=== PATIENT | male | born 2000 | race Two or more races ===

== ENCOUNTER → 2022-03-05 | Emergency (ER) | payer OTHER ==
[~2022-03-05] VITALS: Ht 188 cm; Wt 100.0 kg
[~2022-03-05] MED LIST: ALUM & MAG HYDROX-SIMETH LIQ(MAALOX) 30 ML PO ONE; FAMOTIDINE (10MG/ML) 2ML VL IV ONE; IBUPROFEN 800 MG TAB PO ONE; METOCLOPRAMIDE HCL 5MG/ml INJ 2ml VIAL IV ONE; MORPHINE SULFATE 4 MG/ML SYR/VIAL IV ONE; ONDANSETRON HCL 4 MG/2 ML VIAL IV ONE; POTASSIUM CHL 20MEQ/100ML 100 ML IV ONE; POTASSIUM EFFERVESENT TAB 25 MEQ PO ONE; SODIUM CHLORIDE 0.9% 1,000 ML IV ONE
[2022-03-05 07:27] LABS: Basophils # (auto) 0.2 10 ^3/uL (0-0.2); Eosinophils # (auto) 0.2 10 ^3/uL (0-0.8); Eosinophils % (auto) 1.4 % (0.0-7.0); Hematocrit 49.2 % (41.0-53.0); Hemoglobin 16.8 g/dL (13.5-17.5); Lymphocytes # (auto) 3.7 10 ^3/uL (0.4-5.4); Lymphocytes % (auto) 21.7 % (10.0-50.0); Mean Corpuscular Hgb Conc. 34.2 g/dL (32.0-36.0); Mean Corpuscular Volume 87.7 fL (80.0-100.0); Monocytes # (auto) 1.3 10 ^3/uL (0-1.3); Monocytes % (auto) 7.9 % (0.0-12.0); Neutrophils # (auto) 11.5 10 ^3/uL (1.6-8.6); Nucleated Red Blood Cells % 0.1 %; Red Cell Distribution Width 13.5 % (11.8-14.3); White Blood Cell 16.9 10^3/uL (4.4-10.8)
[2022-03-05 07:38] LABS: Albumin 4.3 g/dL (3.4-5.0); Calcium 9.9 mg/dL (8.5-10.1); Potassium 3.1 mmol/L (3.5-5.1)
[2022-03-05 07:41] LABS: Bilirubin, Total 1.2 mg/dL (0.2-1.0)
[2022-03-05 07:55] LABS: BUN/Creatinine Ratio 7.1
[2022-03-05 16:01] VITALS: BP 120/78
== END | disposition short-term general hospital (02) ==
LOC: ER 06:17
DX: K85.90 Acute pancreatitis without necrosis or infection, unspecified (principal); D72.829 Elevated white blood cell count, unspecified; R00.0 Tachycardia, unspecified; E87.6 Hypokalemia; R74.01 Elevation of levels of liver transaminase levels; R74.8 Abnormal levels of other serum enzymes; E80.7 Disorder of bilirubin metabolism, unspecified; N17.9 Acute kidney failure, unspecified; Z20.822 Contact with and (suspected) exposure to COVID-19
CPT/HCPCS: 36415; 71045; 74176; 76705; 80053; 83690; 84132; 85025; 87426; 96361; 96374; 96375; 96376; 99285; J2270; J2405; J2765; J3490; J7030

== ENCOUNTER 2024-12-06 12:26 | Inpatient (IN) | payer MEDICAID, OTHER ==
[~2024-12-06] VITALS: Ht 182.9 cm; Wt 100.0 kg
[2024-12-06 12:27] VITALS: TEMP 99.1
--- NOTE | 2024-12-06 13:02 | ED.PDOC ---
GI ASSESSMENT HPI Comments 24y M who presents to the ED for chief complaint of abdominal pain. Pt states he has been epigastric abdominal pain since yesterday. Pt states his pain is constant, non-radiating, with no associated exacerbating or relieving factors. Pt denies any associated symptoms. Pt states he has history of pancreatitis for which he was hospitalized 2x years prior. Pt states he is daily drinker and states he drinks 6 beers daily. Pt states he stopped drinking in October and started drinking back on Nov 25 and stopped again 2 days prior. Pt otherwise has noted BP of 161/89 but otherwise stable vitals. Chief Complaint: Abdominal Pain Time Seen by MD: 13:00 Reviewed Notes: Medications, Allergies Allergies: Coded Allergies: NO KNOWN ALLERGIES (Unverified , 03/05/22) Information Source: Patient Mode of Arrival: Ambulatory Past Medical History PAST MEDICAL HISTORY: Denies Surgical History: Denies all surgeries Family History Family History: Unknown Social History Smoker: Non-Smoker Alcohol: Heavy Drugs: Denies Drug Use Lives In: Home Constitutional: denies: chills, diaphoresis, fatigue, fever, malaise, sweats, weakness, others EENTM: denies: blurred vision, double vision, ear bleeding, ear discharge, ear drainage, ear pain, ear ringing, eye pain, eye redness, hearing loss, mouth pain, mouth swelling, nasal discharge, nose bleeding, nose congestion, nose pa in, photophobia, tearing, throat pain, throat swelling, voice changes, others Respiratory: denies: cough, hemoptysis, orthopnea, SOB at rest, shortness of breath, SOB with excertion, stridor, wheezing, others Cardiovascular: denies: chest pain, dizzy spells, diaphoresis, Dyspnea on exertion, edema, irregular heart beat, left arm pain, lightheadedness, palpitations, PND, syncope, others Gastrointestinal: reports: abdominal pain; denies: abdomen distended, blood streaked bowels, constipated, diarrhea, dysphagia, difficulty swallowing, hematemesis, melena, nausea, poor appetite, poor fluid intake, rectal bleeding, rectal pain, vomiting, others Genitourinary: denies: burning, dysuria, flank pain, frequency, hematuria, incontinence, penile discharge, penile sore, pain, testicle pain, testicle swelling, urgency, others Neurological: denies: dizziness, fainting, headache, left sided numbness, left sided weakness, numbness, paresthesia, pre-existing deficit, right sided numbness, right sided weakness, seizure, speech problems, tingling, tremors, weakness, others Musculoskeletal: denies: back pain, gout, joint pain, joint swelling, muscle pain, muscle stiffness, neck pain, others Integumetry: denies: bruises, change in color, change in hair/nails, dryness, laceration, lesions, lumps, rash, wounds, others Allergic/Immunocompromised: denies: Difficulty Healing, Frequent Infections, Hives, Itching, others Hematologic/Lymphatic: denies: anemia, blood clots, easy bleeding, easy bruising, swollen glands, others Endocrine: denies: excessive hunger, excessive sweating, excessive thirst, excessive urination, flushing, intolerance to cold, intolerance to heat, unexplained weight gain, unexplained weight loss, others Psychiatric: denies: anxiety, bipolar disorder, depression, hopeless, panic disorder, schizophrenia, sleepless, suicidal, others All Other Systems: Reviewed and Negative Physical Exam General Appearance: Mild Distress, Moderate Distress HEENT: Normal ENT Inspection, PERRL/EOMI Neck: Full Range of Motion, Non-Tender, Normal, Normal Inspection Respiratory: Chest Non-Tender, Lungs Clear, No Accessory Muscle Use, No Respiratory Distress, Normal Breath Sounds Cardiovascular: No Edema, No JVD, No Murmur, No Gallop, Normal Peripheral Pulses, Regular Rate/Rhythm Breast Exam: Deferred Gastrointestinal: Epigastric, No Organomegaly, No Pulsatile Mass, Normal Bowel Sounds, Soft, Tenderness Genitalia: Epididymis Pelvic: Deferred Rectal: Deferred Extremities: No calf tenderness, Normal capillary refill, Normal inspection, Normal range of motion, Non-tender, No pedal edema Neurologic: Alert, accreditation specialist II-XII nml as Tested, No Motor Deficits, Normal Affect, Normal Mood, No Sensory Deficits Cerebellar Function: Normal Reflexes: Normal Skin: Dry, Normal Color, Warm Peripheral Pulses: 1+ carotid (R), 1+ carotid (L) Lymphatic: No Adenopathy Was a procedure done? Was a procedure done?: No GI differential Dx Differential Diagnosis: Esophagitis, Gastritis/PUD, Gastroenteritis, Pancreatitis, Dehydration, Electrolyte Imbalance, Stress Ulcer X-Ray, Labs, Meds, VS Vital Signs Date Time Temp Pulse Resp B/P (MAP) Pulse Ox O2 Delivery O2 Flow Rate FiO2 12/06/24 12:27 99.1 88 17 161/98 97 99.1 Lab Test 12/06/24 13:52 Range/Units White Blood Count 17.2 H 4.4-10.8 10^3/uL Red Blood Count 5.59 4.5-5.90 10^6/uL Hemoglobin 16.4 13.5-17.5 g/dL Hematocrit 47.5 41.0-53.0 % Mean Corpuscular Volume 85.0 80.0-100.0 fL Mean Corpuscular Hemoglobin 29.4 28.0-32.0 pg Mean Corpuscular Hemoglobin Concent 34.6 32.0-36.0 g/dL Red Cell Distribution Width 13.1 11.8-14.3 % Platelet Count 261 140-450 10^3/uL Mean Platelet Volume 8.9 6.9-10.8 fL Neutrophils (%) (Auto) 85.4 H 37.0-80.0 % Lymphocytes (%) (Auto) 10.2 10.0-50.0 % Monocytes (%) (Auto) 3.5 0.0-12.0 % Eosinophils (%) (Auto) 0.5 0.0-7.0 % Basophils (%) (Auto) 0.4 0.0-2.0 % Neutrophils # (Auto) 14.7 H 1.6-8.6 10 ^3/uL Lymphocytes # (Auto) 1.8 0.4-5.4 10 ^3/uL Monocytes # (Auto) 0.6 0-1.3 10 ^3/uL Eosinophils # (Auto) 0.1 0-0.8 10 ^3/uL Basophils # (Auto) 0.1 0-0.2 10 ^3/uL Nucleated Red Blood Cells 0.1 % Sodium Level 139 136-145 mmol/L Potassium Level 3.8 3.5-5.1 mmol/L Chloride Level 102 98-107 mmol/L Carbon Dioxide Level 25 20-31 mmol/L Anion Gap 12 5-15 Blood Urea Nitrogen 11 9-23 mg/dL Creatinine 1.11 0.700-1.30 mg/dL Glomerular Filtration Rate Calc 95 >90 mL/min BUN/Creatinine Ratio 9.9 L 10.0-20.0 Serum Glucose 128 H 74-106 mg/dL Calcium Level 10.0 8.7-10.4 mg/dL Magnesium Level 2.1 1.6-2.6 mg/dL Total Bilirubin 0.8 0.2-1.0 mg/dL Aspartate Amino Transferase (AST) 22 13-40 U/L Alanine Aminotransferase (ALT) 35 7-40 U/L Alkaline Phosphatase 133 H 46-116 U/L Total Protein 8.0 5.7-8.2 g/dL Albumin 5.6 H 3.2-4.8 g/dL Amylase Level 897 H 30-118 U/L Lipase 578 H 12-53 U/L Current Medications Medications (Trade) Dose Ordered Sig/Bassem Route Start Time Stop Time Status Last Admin Metoclopramide HCl (Reglan Injection) 10 mg ONCE ONCE IV 12/06/24 13:00 12/06/24 13:01 DC 12/06/24 14:42 Belladonna Alkaloids/ Phenobarbital ( Elixir) 5 ml ONCE ONCE PO 12/06/24 13:00 12/06/24 13:01 DC 12/06/24 14:01 Lidocaine HCl (Xylocaine 2% Viscous) 15 ml ONCE ONCE PO 12/06/24 13:00 12/06/24 13:01 DC 12/06/24 14:02 Pantoprazole Sodium (Protonix Tablet) 40 mg ONCE ONCE PO 12/06/24 13:00 12/06/24 13:01 DC 12/06/24 14:01 X-Ray, Labs, Meds, VS Comment In the emergency department eventful patient came in complaining of abdominal pain in the history of pancreatitis he is also having nausea and vomiting Blood pressure is elevated at 160 1/98 CBC 66907 with 85 % leukocyte H&H normal Lipase 578 Blood sugar 128 Magnesium 2.1 Patient with pancreatitis we will need to be admitted for further care Time of 1ST Reevaluation: 13:09 Reevaluation 1ST: Unchanged Patient Education/Counseling: Diagnosis, Treatment, Prognosis, Need For Follow Up Family Education/Counseling: Diagnosis, Treatment, Prognosis, Need For Follow Up, No Family Present SEPSIS Sepsis Screen Date sepsis recognized/suspect: Dec 06, 2024 Time Sepsis recognized/suspect: 1227 Recent Procedure: No On Antibiotic Therapy: No Respiratory Rate >20: No Heart Rate >90: No Temp<36 C (96.8 F) or >38.3 C: No SBP <90 or MAP <65 mmHG: No New Acute Mental Status Change: No Is the patient on CPAP, BIPAP,: No Physician Orders Heplock Iv (12/06/24 12:54) Abdomen Limited (12/06/24 15:16) Vital Signs Date Time Temp Pulse Resp B/P (MAP) Pulse Ox O2 Delivery O2 Flow Rate FiO2 12/06/24 12:27 99.1 88 17 161/98 97 99.1 Laboratory Tests Test 12/06/24 13:52 White Blood Count 17.2 10^3/uL (4.4-10.8) H Medications Medications Dose Ordered Sig/Bassem Route Start Time Stop Time Status Last Admin Dose Admin Belladonna Alkaloids/ Phenobarbital 5 ml ONCE ONCE PO 12/06/24 13:00 12/06/24 13:01 DC 12/06/24 14:01 Lidocaine HCl 15 ml ONCE ONCE PO 12/06/24 13:00 12/06/24 13:01 DC 12/06/24 14:02 Metoclopramide HCl 10 mg ONCE ONCE IV 12/06/24 13:00 12/06/24 13:01 DC 12/06/24 14:42 Pantoprazole Sodium 40 mg ONCE ONCE PO 12/06/24 13:00 12/06/24 13:01 DC 12/06/24 14:01 Departure 1 Departure Time of Disposition: 14:33 Impression: Primary Impression: Acute abdominal pain Additional Impressions: Acute pancreatitis Uncontrolled hypertension Disposition: ADMITTED INPATIENT Condition: Fair Critical Care Note Critical Care Time?: No Stability Stability form required: Yes Heart Score Heart Score: Heart Score Response (Comments) Value History N/A 0 EKG N/A 0 Age <45 0 Risk Factors No known risk factors 0 Troponin N/A 0 Total 0 I personally scribed for ALECIA CARDOSO MD ([email or web address]) on 12/06/24 at 13:02. Electronically submitted by Shawna Gomez ([email or web address]). ALECIA CARDOSO MD Dec 06, 2024 13:02
[2024-12-06] MEDS: PANTOPRAZOLE 40 MG TAB PO ONE (14:01)
[2024-12-06] MEDS: DONNATAL 5ml ORAL Elix (BELLADONNA ALK-PHENOBARB) PO ONE (14:01)
[2024-12-06] MEDS: LIDOCAINE VISCOUS 2% 15ML UD PO ONE (14:02)
[2024-12-06 14:13] LABS: Hematocrit 47.5 % (41.0-53.0); Hemoglobin 16.4 g/dL (13.5-17.5); Mean Corpuscular Hemoglobin 29.4 pg (28.0-32.0); Mean Corpuscular Volume 85.0 fL (80.0-100.0); Nucleated Red Blood Cells % 0.1 %
[2024-12-06 14:19] LABS: Alanine Aminotransferase 35 U/L (7-40); Anion Gap 12 (5-15); BUN/Creatinine Ratio 9.9 (10.0-20.0); Blood Urea Nitrogen 11 mg/dL (9-23); Calcium 10.0 mg/dL (8.7-10.4); Carbon Dioxide 25 mmol/L (20-31); Chloride 102 mmol/L (98-107); Magnesium 2.1 mg/dL (1.6-2.6); Potassium 3.8 mmol/L (3.5-5.1); Sodium 139 mmol/L (136-145); Total Protein 8.0 g/dL (5.7-8.2)
[2024-12-06 14:20] LABS: Bilirubin, Total 0.8 mg/dL (0.2-1.0)
[2024-12-06 14:22] LABS: Albumin 5.6 g/dL (3.2-4.8); Alkaline Phosphatase 133 U/L (46-116); Glucose 128 mg/dL (74-106); Lipase 578 U/L (12-53)
[2024-12-06] MEDS: METOCLOPRAMIDE HCL 5MG/ml INJ 2ml VIAL IV ONE (14:42)
--- NOTE | 2024-12-06 16:00 | DVH ---
ULTRASOUND ABDOMEN, LIMITED RIGHT UPPER QUADRANT: REASON FOR EXAM: Abd pain, pancreatitis TECHNIQUE: Real-time sector scans in the transverse and longitudinal planes were obtained through th e right upper quadrant of the abdomen. FINDINGS: The liver is at the upper limits of normal for size at 17.5 cm in length. The liver echote xture is within normal limits. There is hepatopetal flow in the portal vein. There is no intrahepati c nor extrahepatic biliary ductal dilatation. The common bile duct is not visualized. No gallstones or sludge are identified. There is no gallbladder wall thickening nor pericholecystic fluid. There is no sonographic Lyn's sign. The pancreas is largely obscured by bowel gas. The visualized portion of the pancreas is unremarkable . The right kidney measures 10.2 cm. No hydronephrosis or nephrolithiasis is identified. There is no evidence of right renal mass or cyst. The visualized portions of the abdominal aorta demonstrate no evidence of aneurysmal dilatation. The visualized inferior vena cava is unremarkable. There is no free fluid identified in the right upper quadrant. IMPRESSION: The common bile duct is not visualized on the current study. The pancreas is largely obscured by bowel gas. Liver at the upper limits of normal for size.
[2024-12-06] MEDS ORDERED: ONDANSETRON HCL 4 MG/2 ML VIAL IV PRN (16:30)
[2024-12-06] MEDS ORDERED: ACETAMINOPHEN 325 MG TAB PO PRN (16:30)
[2024-12-06] MEDS ORDERED: LORazepam 2MG/ML-1ML VIAL IV PRN (16:45)
[2024-12-06] MEDS: THIAMINE HCL 100 MG TAB PO ONE (16:47)
[2024-12-06] MEDS: MULTIPLE VITAMIN TAB PO ONE (16:47)
[2024-12-06] MEDS: FOLIC ACID 1 MG TAB PO ONE (16:47)
--- NOTE | 2024-12-06 16:55 | DVHHP2 ---
History of Present Illness Reason for Visit: Abdominal Pain History of Present Illness Ada Ortiz is a 24-year-old male with past medical history of pancreatitis and ETOH dependance, who came to the hospital due to abdominal pain. Patient states he last drank on Wednesday, he had about 6 beers. States the pain also began on Wednesday with associated nausea. States it feels similar to previous times that he has had pancreatitis. GI: Other (Pancreatitis) Past Surgical History: None Smoke: No ALCOHOL: heavy (6 beers a day) Drugs: None Lives: with Family Domestic Violence: Neg Review of Systems Constitutional: No: Fever, Chills, Sweats, Weakness, Malaise, Other Eyes: No: Pain, Vision change, Conjunctivae inflammation, Eyelid inflammation, Other, Redness ENT: No: Ear pain, Ear discharge, Nose pain, Nose discharge, Nose congestion, Mouth pain, Mouth swelling, Throat pain, Throat swelling, Other Respiratory: No: Cough, Dry, Shortness of breath, SOB with excertion, Wheezing, Hemoptysis, Pleuritic Pain, Sputum, Wheezing, Other Cardiovascular: No: Chest Pain, Palpitations, Orthopnea, Paroxysmal Noc. Dyspnea, Edema, Lt Headedness, Other Gastrointestinal: Nausea, Abdominal Pain; No: Vomiting, Diarrhea, Constipation, Melena, Hematochezia, Other Genitourinary: No Dysuria, No Frequency, No Incontinence, No Hematuria, No Retention, No Other Musculoskeletal: No: other, neck pain, shoulder pain, arm pain, back pain, hand pain, leg pain, foot pain Skin: No: Rash, Lesions, Jaundice, Bruising, Other Neurological: No: Weakness, Numbness, Incoordination, Change in speech, Confusion, Seizures, Other Allergies: Coded Allergies: NO KNOWN ALLERGIES (Unverified , 03/05/22) Medications Current Medications Medications Dose Ordered Sig/Bassem Route Start Time Stop Time Status Last Admin Dose Admin Sodium Chloride 1,000 ml @ 100 mls/hr Q10H IV 12/06/24 16:30 UNV Acetaminophen/ Hydrocodone Bitart 1 tab Q4HP PRN PO 12/06/24 16:30 UNV Ondansetron HCl 4 mg Q4HP PRN IV 12/06/24 16:30 UNV Acetaminophen 650 mg Q6HP PRN PO 12/06/24 16:30 UNV Exam Vital Signs Vital Signs Date Time Temp Pulse Resp B/P (MAP) Pulse Ox O2 Delivery O2 Flow Rate FiO2 12/06/24 12:27 99.1 88 17 161/98 97 99.1 General Appearance: Alert, Oriented X3, Cooperative, mild distress HEENT: Atraumatic, PERRLA Respiratory: Clear to auscultation, Normal air movement Cardiovascular: Regular rate, Normal S1, Normal S2, No murmurs Abdominal: Normal bowel sounds, Soft, Other (epigastric, RUQ pain that radiates to back) Extremities: No clubbing, No cyanosis, No edema, Normal pulses, No tenderness/swelling Skin: No rashes, No breakdown, No significant lesion Neuro: Normal gait, Normal speech, Strength at 5/5 X4 ext Psych/Mental Status: Mental status NL, Mood NL Labs/Xrays Labs Test 12/06/24 13:52 Range/Units White Blood Count 17.2 H 4.4-10.8 10^3/uL Red Blood Count 5.59 4.5-5.90 10^6/uL Hemoglobin 16.4 13.5-17.5 g/dL Hematocrit 47.5 41.0-53.0 % Mean Corpuscular Volume 85.0 80.0-100.0 fL Mean Corpuscular Hemoglobin 29.4 28.0-32.0 pg Mean Corpuscular Hemoglobin Concent 34.6 32.0-36.0 g/dL Red Cell Distribution Width 13.1 11.8-14.3 % Platelet Count 261 140-450 10^3/uL Mean Platelet Volume 8.9 6.9-10.8 fL Neutrophils (%) (Auto) 85.4 H 37.0-80.0 % Lymphocytes (%) (Auto) 10.2 10.0-50.0 % Monocytes (%) (Auto) 3.5 0.0-12.0 % Eosinophils (%) (Auto) 0.5 0.0-7.0 % Basophils (%) (Auto) 0.4 0.0-2.0 % Neutrophils # (Auto) 14.7 H 1.6-8.6 10 ^3/uL Lymphocytes # (Auto) 1.8 0.4-5.4 10 ^3/uL Monocytes # (Auto) 0.6 0-1.3 10 ^3/uL Eosinophils # (Auto) 0.1 0-0.8 10 ^3/uL Basophils # (Auto) 0.1 0-0.2 10 ^3/uL Nucleated Red Blood Cells 0.1 % Sodium Level 139 136-145 mmol/L Potassium Level 3.8 3.5-5.1 mmol/L Chloride Level 102 98-107 mmol/L Carbon Dioxide Level 25 20-31 mmol/L Anion Gap 12 5-15 Blood Urea Nitrogen 11 9-23 mg/dL Creatinine 1.11 0.700-1.30 mg/dL Glomerular Filtration Rate Calc 95 >90 mL/min BUN/Creatinine Ratio 9.9 L 10.0-20.0 Serum Glucose 128 H 74-106 mg/dL Calcium Level 10.0 8.7-10.4 mg/dL Magnesium Level 2.1 1.6-2.6 mg/dL Total Bilirubin 0.8 0.2-1.0 mg/dL Aspartate Amino Transferase (AST) 22 13-40 U/L Alanine Aminotransferase (ALT) 35 7-40 U/L Alkaline Phosphatase 133 H 46-116 U/L Total Protein 8.0 5.7-8.2 g/dL Albumin 5.6 H 3.2-4.8 g/dL Amylase Level 897 H 30-118 U/L Lipase 578 H 12-53 U/L SEPSIS Sepsis Screen Date sepsis recognized/suspect: Dec 06, 2024 Time Sepsis recognized/suspect: 7 Recent Procedure: No On Antibiotic Therapy: No Respiratory Rate >20: No Heart Rate >90: No Temp<36 C (96.8 F) or >38.3 C: No SBP <90 or MAP <65 mmHG: No New Acute Mental Status Change: No Is the patient on CPAP, BIPAP,: No Physician Orders Heplock Iv (12/06/24 12:54) Abdomen Limited (12/06/24 15:16) Admit (12/06/24 16:17) Code Status (12/06/24 16:17) Sodium Chloride 0.9% (12/06/24 16:30) Hydrocodone-Acet 5/325mg Tab ([place] 5/32 (12/06/24 16:30) Ondansetron Hcl (Zofran) (12/06/24 16:30) Complete Blood Count (12/07/24 04:00) Comprehensive Metabolic Panel (12/07/24 04:00) Npo (Nothing By Mouth) Diet (12/06/24 Dinner) Condition: Serious (12/06/24 16:17) Acetaminophen Tablet (Tylenol Tablet) (12/06/24 16:30) Amylase (12/07/24 04:00) Lipase (12/07/24 04:00) Thiamine Tab (12/06/24 16:45) Thiamine Tab (12/07/24 10:00) Folic Acid Tablet (12/06/24 16:45) Folic Acid Tablet (12/07/24 10:00) Multiple Vitamin Tablet (Mvi Tab) (12/06/24 16:45) Multiple Vitamin Tablet (Mvi Tab) (12/07/24 10:00) Chlordiazepoxide Hcl Capsule (Librium Ca (12/06/24 16:45) Lorazepam 2mg/Ml Inj (Ativan Inj) (12/06/24 16:45) Vital Signs Date Time Temp Pulse Resp B/P (MAP) Pulse Ox O2 Delivery O2 Flow Rate FiO2 12/06/24 12:27 99.1 88 17 161/98 97 99.1 Laboratory Tests Test 12/06/24 13:52 White Blood Count 17.2 10^3/uL (4.4-10.8) H Medications Medications Dose Ordered Sig/Bassem Route Start Time Stop Time Status Last Admin Dose Admin Belladonna Alkaloids/ Phenobarbital 5 ml ONCE ONCE PO 12/06/24 13:00 12/06/24 13:01 DC 12/06/24 14:01 5 ML Lidocaine HCl 15 ml ONCE ONCE PO 12/06/24 13:00 12/06/24 13:01 DC 12/06/24 14:02 15 ML Metoclopramide HCl 10 mg ONCE ONCE IV 12/06/24 13:00 12/06/24 13:01 DC 12/06/24 14:42 10 MG Pantoprazole Sodium 40 mg ONCE ONCE PO 12/06/24 13:00 12/06/24 13:01 DC 12/06/24 14:01 40 MG Assessment/Plan Assessment/Plan Assessment: Acute pancreatitis, ETOH dependance, Possible ETOH withdrawal, Leukocytosis, Plan: Admit to Med-Surg, IV hydration, Pain management, Consider GI consult if symptoms do not improve, NPO, Abdominal ultrasound, Amylase and Lipase in am, Supplemental vitamins for ETOH dependance, PRN medications for possible ETOH withdrawal, Plan discussed with: Patient My Orders Orders - TRACE RIVERA Procedure Category Date Status Time Abdomen Limited US 12/06/24 Resulted 15:16 Admit ADMIT 12/06/24 Transmitted 16:17 Code Status CODE 12/06/24 Transmitted 16:17 Sodium Chloride 0.9% PHA 12/06/24 Logged 16:30 Hydrocodone-Acet PHA 12/06/24 Logged 5/325mg Tab ([place] 16:30 Ondansetron Hcl PHA 12/06/24 Logged (Zofran) 16:30 Complete Blood Count LAB 12/07/24 Verified 04:00 Comprehensive LAB 12/07/24 Verified Metabolic Panel 04:00 Npo (Nothing By DIET 12/06/24 Transmitted Mouth) Diet Dinner Condition: Serious NASIR 12/06/24 In Process 16:17 Acetaminophen Tablet PHA 12/06/24 Logged (Tylenol Tablet) 16:30 Amylase LAB 12/07/24 Verified 04:00 Lipase LAB 12/07/24 Verified 04:00 Thiamine Tab PHA 12/06/24 Verified 16:45 Thiamine Tab PHA 12/07/24 Verified 10:00 Folic Acid Tablet PHA 12/06/24 Verified 16:45 Folic Acid Tablet PHA 12/07/24 Verified 10:00 Multiple Vitamin PHA 12/06/24 Verified Tablet (Mvi Tab) 16:45 Multiple Vitamin PHA 12/07/24 Verified Tablet (Mvi Tab) 10:00 Chlordiazepoxide Hcl PHA 12/06/24 Verified Capsule (Librium Ca 16:45 Lorazepam 2mg/Ml Inj PHA 12/06/24 Verified (Ativan Inj) 16:45 Date of Service: Dec 06, 2024 Billing Provider: TRACE RIVERA Common Visit Codes: [id number] INP/OBS CARE (MOD) TRACE RIVERA Dec 06, 2024 16:55
[2024-12-06 17:00] VITALS: PULSE 74; RESP 15; O2SAT 96
[2024-12-06] MEDS ORDERED: MORPHINE SULFATE INJ 2 MG/ml SYRG IV PRN (17:00)
[2024-12-06 19:36] VITALS: BP 158/99; PULSE 93; RESP 18; O2SAT 95
[2024-12-06] MEDS: SODIUM CHLORIDE 0.9% 1,000 ML IV SCH (19:55)
[2024-12-06] MEDS: SODIUM CHLORIDE 0.9% 1,000 ML IV ONE (19:55)
[2024-12-06] MEDS: HYDROcodone-ACET 5/325MG TAB PO PRN (20:01)
[2024-12-07] MEDS ORDERED: MULTIPLE VITAMIN TAB PO SCH (10:00)
[2024-12-07] MEDS ORDERED: THIAMINE HCL 100 MG TAB PO SCH (10:00)
[2024-12-07] MEDS ORDERED: FOLIC ACID 1 MG TAB PO SCH (10:00)
== END 2024-12-06 22:35 | disposition left against medical advice (07) | DRG 282 ==
LOC: ER 12:26 → OVERFLOW 16:17
PROVIDERS: ADMIT Nurse Practitioner Family; ATTEND Nurse Practitioner Family
DX: K85.90 Acute pancreatitis without necrosis or infection, unspecified (principal); F10.239 Alcohol dependence with withdrawal, unspecified; I10 Essential (primary) hypertension; Z53.29 Procedure and treatment not carried out because of patient's decision for other reasons; Z79.899 Other long term (current) drug therapy; Y90.9 Presence of alcohol in blood, level not specified
CPT/HCPCS: 36415; 76705; 80053; 82150; 83690; 83735; 85025; 96361; 96374; G0378